=== PATIENT | female | born 1990 | race Caucasian/White ===

== ENCOUNTER 2023-10-05 06:02 | Emergency (ER) | payer OTHER, SELFPAY ==
[2023-10-05] VITALS (14 sets, daily range): BP systolic 87–103; BP diastolic 48–86; PULSE 60–72; RESP 14–19; TEMP 36.3; O2SAT 99–100
--- NOTE | ~2023-10-05 | US_ITS ---
US right upper quadrant INDICATION: Right upper quadrant pain PROCEDURE: Realtime right upper abdominal ultrasound. COMPARISON: No prior studies for comparison. FINDINGS: The pancreas is normal without focal mass or pancreatic ductal dilation. Liver echotexture is normal without focal mass or intrahepatic biliary dilatation. There is normal directional flow i n the portal vein. The gallbladder is normal without stones, gallbladder wall thickening or pericholecystic fluid. Comm on bile duct measures 5 mm. No sonographic Stewart's sign. IMPRESSION: 1: Normal limited abdominal ultrasound. Reviewed, dictated and finalized at location A.
--- NOTE | ~2023-10-05 | CT_ITS ---
EXAMINATION: CT abdomen pelvis w con DATE: 10/05/2023 07:32 INDICATION: Right upper quadrant abdominal pain TECHNIQUE: Computed tomography (CT) of the abdomen and pelvis was performed with 100 cc Omnipaque 350 intravenous contrast. The dose-length product was 267.04 mGy-cm. Automated exposure control and iter ative reconstruction technique were employed. COMPARISON: None. FINDINGS: Lung bases unremarkable. Heart size normal. No significant pleural or pericardial effusion. There is a subtle 1 cm hypodensity of the right hepatic lobe, most likely benign, although too small to characterize. Gallbladder is mildly distended. There is a dependent hyperdense intraluminal focus which may represent a stone or gallbladder polyp, axial image 30 and sagittal image 44. The spleen, pancreas, adrenal glands are unremarkable. There are nonobstructing bilateral renal stones. There is a 1.7 cm left ovarian cyst. Nonobstructive bowel gas pattern. No significant vascular abnormality. No lymphadenopathy. No free air or free fluid. No evidence for aortic aneurysm. Small umbilical hernia containing nonobstructed bowel. No acute osseous abnormality.. IMPRESSION: 1. Nonobstructing bilateral nephrolithiasis. 2: Small gallstone versus gallbladder polyp. No corresponding finding to be seen on ultrasound perfor med same day. 3: Left ovarian cyst measuring 1.7 cm. Reviewed, dictated and finalized at location A. IMPRESSION: 1. Nonobstructing bilateral nephrolithiasis. 2: Small gallstone versus gallbladder polyp. No corresponding finding to be see n on ultrasound performed same day. 3: Left ovarian cyst measuring 1.7 cm.
[2023-10-05 06:34] LABS: Basophils Percent Auto 0.7 % (0.2-1.2); Eosinophils Absolute Auto 0.2 K/mm3 (0-0.3); Eosinophils Percent Auto 2.9 % (0-4.4); Hemoglobin 12.6 g/dL (12.0-15.0); Immature Granulocyte Absolute 0.02 K/mm3 (0.00-0.031); Immature Granulocyte Percent A 0.3 % (0-0.5); Lymphocytes Absolute Auto 1.66 K/mm3 (0.9-3.2); Lymphocytes Percent Auto 27.2 % (18.3-44.2); Mean Corpuscular HGB Conc 31.5 g/dl (32-36); Mean Corpuscular Hemoglobin 28.4 pg (26-34); Mean Corpuscular Volume 90.3 fl (80-100); Mean Platelet Volume 9.2 fl (7.4-10.4); Monocytes Absolute Auto 0.4 K/mm3 (0.1-0.6); Monocytes Percent Auto 6.4 % (2.6-8.5); Neutrophils Absolute Auto 3.8 K/mm3 (1.3-6.7); Neutrophils Percent Auto 62.5 % (45.5-73.1); Platelet Count Result 227 k/mm3 (150-375); Red Blood Count 4.43 M/mm3 (4.2-5.4); Red Cell Distribution Width 12.6 % (11.5-14.5); White Blood Count 6.1 K/mm3 (4.5-10.0)
[2023-10-05 06:37] LABS: Appearance Urine Clear (Clear); Bilirubin Urine Negative (Negative); Blood Urine Negative (Negative); Color Urine Yellow (Yellow); Glucose Urine UA Negative (Negative); Ketones Urine Negative (Negative); Leukocyte Esterase Ur Negative LEU/UL (Negative); Nitrate Urine Negative (Negative); Protein Urine Negative (Negative); Urobilinogen Urine 0.2 mg/dL (<2.0); pH Urine 5.5 (5.0-9.0)
[2023-10-05 06:38] LABS: Alanine Aminotransferase 14 U/L (6-35); Albumin Level 4.5 g/dL (3.5-5.1); Alkaline Phosphatase 64 U/L (38-126); Anion Gap 7 mmol/L (4-12); Aspartate Amino Transferase 20 U/L (14-36); Bilirubin,Total 0.4 mg/dL (0.2-1.3); Blood Urea Nitrogen 18 mg/dL (7-17); Calcium 10.3 mg/dL (8.4-10.2); Carbon Dioxide 28 mmol/L (22-30); Chloride 106 mmol/L (98-107); Estimated CRCL calculation 63 ml/min; Estimated Glomerular Filt Rate > 60; Glucose 110 mg/dL (65-110); Lipase 143 U/L (23-300); Potassium 3.8 mmol/L (3.4-5.0); Sodium 141 mmol/L (137-145)
[2023-10-05 06:46] LABS: Add Urine Microscopic? NO
--- NOTE | 2023-10-05 07:31 | ED.ABDPAIN ---
HPI - Abdominal Pain General Chief Complaint: Abdominal Pain Stated Complaint: RUQ pain, nausea Time Seen by Provider: 10/05/23 06:53 History of Present Illness HPI narrative: This is a 33-year-old female, recently delivered by 3 months ago, presents emergency department complaining of right upper quadrant abdominal pain. The patient states she was in her usual state of health this morning, when she had gradual onset cramping intermittently sharp right upper quadrant pain. She states the pain was initially constant and is now waxing and waning. At maximum it is rated 8/10 minimum 4/10. This is accompanied by nausea though no vomiting, diarrhea, fevers, chills or change in urination. Related Data Allergies Allergy/AdvReac Type Severity Reaction Status Date / Time narcotics AdvReac Nausea and Uncoded 10/05/23 06:08 Vomiting Review of Systems Review of Systems: CONSTITUTIONAL: Denies fever, chills, or sweats. EYES: Denies visual changes, redness, or discharge. ENT: Denies rhinorrhea, congestion, sore throat, or otalgia. CARDIOVASCULAR: Denies chest pain, palpitations, or edema. RESPIRATORY: Denies cough or dyspnea. GASTROINTESTINAL: Right upper quadrant abdominal pain, nausea Denies vomiting, or diarrhea. GENITOURINARY: LMP 13 months ago. Denies dysuria or hematuria. SKIN: Denies rash or itching. MUSCULOSKELETAL: Denies back pain, joint pain, or myalgia. NEUROLOGIC: Denies headache, numbness, dizziness, or weakness. PSYCHIATRIC: Denies anxiety or depression. PMFSH Past Medical History Medical History No significant past medical history Surgical History Surgical History History of x3 Social History Social History Smoking status: Never smoker Alcohol intake: never Substance use: never Exam Narrative: GENERAL: Well-developed, well-nourished, and in no acute distress. HEAD: Normocephalic, atraumatic. EYES: PERRLA and EOMI. CHEST: Clear to auscultation. No respiratory distress. No wheezes rales or rhonchi HEART: Regular rate and rhythm. No murmur heard. Normal peripheral pulses. ABDOMEN: Right upper quadrant tenderness to palpation, without rebound though with passive guarding, Soft, nondistended, normal active bowel sounds. No CVA tenderness EXTREMITIES: Normal range of motion. No edema. SKIN: Warm, dry, no rash. NEURO: Alert and oriented x3. No focal deficit. Moving all 4 limbs spontaneously PSYCH: Normal mood and affect. Course Course Emergency Course: 08:30 - CBC unremarkable. Chemistries within normal limits. UA not concerning for UTI. test negative. CT abdomen pelvis demonstrates a possible gallbladder stone versus polyp but is otherwise not concerning for acute intra-abdominal process. Right upper quadrant ultrasound, though demonstrates a normal-appearing gallbladder without stone and normal common bile duct. On re-evaluation after pain medications, the patient states she feels much improved. I suspect biliary colic as a cause of her pain. Will discharge with nausea medications and recommendations for home pain management as well as primary care follow-up. I discussed the findings and recommendations with the patient and her spouse. Discussed return and emergency precautions including signs/symptoms of acute abdomen. The patient voiced understanding and agreement with the plan. All questions answered to her satisfaction. Vital Signs Vital signs: Vital Signs Temperature 97.3 F L 10/05/23 06:06 Pulse Rate 60 10/05/23 06:06 Respiratory Rate 19 10/05/23 06:06 Blood Pressure 91/67 L 10/05/23 06:06 Pulse Oximetry 100 10/05/23 06:06 Oxygen Delivery Room Air 10/05/23 06:06 Temperature 97.3 F L 10/05/23 06:06 Pulse Rate 69 10/05/23 08:46 Respiratory Rate 19 10/05/23 08
[2023-10-05] MEDS: SODIUM CHLORIDE 0.9% IV 1,000 ML 999 ML IV CONT (07:42)
[2023-10-05] MEDS: KETOROLAC 30 MG/ML VIAL (*BKC) IV PUSH (07:42)
[2023-10-05] MEDS: ONDANSETRON INJ 4 MG/2 ML VIAL IV PUSH (07:42)
== END 2023-10-05 09:30 | disposition home or self-care (01) ==
PROVIDERS: Emergency Medicine; Emergency Provider Preventive Medicine Aerospace Medicine
DX: K80.50 Calculus of bile duct without cholangitis or cholecystitis without obstruction (principal); N83.202 Unspecified ovarian cyst, left side; N20.0 Calculus of kidney
CPT/HCPCS: 36415; 74177; 76705; 80053; 81003; 81025; 83690; 85025; 96361; 96374; 96375; 99284; J1885; J2405; J7030; Q9967